=== PATIENT | male | born 1985 | race Hispanic/Latino ===

== ENCOUNTER 2017-05-14 12:30 | Emergency (ER) | payer SELFPAY ==
[~2017-05-14] VITALS: Ht 188 cm; Wt 77.1 kg
--- NOTE | 2017-05-14 13:22 | ED NECK/BACK PAIN COMPLAINT ---
History of Present Illness General Chief Complaint: Low Back Pain/Injury Stated Complaint: LOW BACK PAIN Source: patient, old records Exam Limitations: no limitations Vital Signs & Intake/Output Vital Signs & Intake/Output Vital Signs Date Time Temp Pulse Resp B/P B/P Pulse O2 O2 Flow FiO2 Mean Ox Delivery Rate 05/14 1437 98.8 71 20 112/62 98 Room Air 05/14 1359 Room Air 05/14 1246 98.6 86 20 104/69 97 Room Air Allergies Coded Allergies: No Known Allergies (05/14/17) Reconcile Medications Cyclobenzaprine HCl 5 MG TABLET 1 TAB PO TIDPRN PRN pain Naproxen 500 MG TABLET 1 TAB PO BID PRN pain Triage Note: PT C/O LOW BACK PAIN X 3 DAYS. DENIES ANY INJURY. STATES HE WOKE UP ON FRIDAY WITH THE PAIN. USED IBUPROFEN 100MG AND IT WORKED FOR ABOUT A HALF AN HOUR Triage Nurses Notes Reviewed? yes Onset: Abrupt Duration: day(s): (3), constant Timing: recent history Quality/Severity: moderate (aching) Location: lumbar spine, paraspinous muscles Radiation: none Context: denies Loss of Consciousness: no loss of consciousness Modifying Factors: movement, rest Associated Symptoms: denies HPI: 32-year-old male with no medical history presents to the ER for evaluation complaining of bilateral lower back pain for the past 3 days. He states he's had intermittent episodes of similar pain in the past however he is been able to tolerate by taking medication and rest. He denies any new injury or trauma. No history of back surgeries in the past. There is no radiation the pain, no numbness or tingling in his legs. No urinary or bowel incontinence O Dohle pain nausea or vomiting. He took ibuprofen 800 mg without improvement. (Yong Henry) Past History Travel History Traveled to [place] past 21 day No Medical History Any Pertinent Medical History? none Surgical History Surgical History: none Psychosocial History What is your primary language Icelandic Tobacco Use: Current Daily Use Daily Tobacco Use Amount/Type: => 5 Cigarettes daily ETOH Use: denies use Illicit Drug Use: denies illicit drug use Family History Hx Contributory? No (Yong Henry) Review of Systems Review of Systems Constitutional: Reports: see HPI. Comments Review of systems: See HPI, All other systems negative. Constitutional, no chills no fever, HEENT: no sore throat no congestion Cardiovascular: No chest pain , Skin: no rashes, no change in skin Respiratory: No dyspnea no cough no sputum GI: No nausea no vomiting, no diarrhea, no bloating/constipation : No dysuria No hematuria, no frequency Muscle skeletal: No joint pain, back pain, no neck pain, Neurologic: , no headache Heme/endocrine: No bruising Immunology: No lymphadenopathy (Yong Henry) Physical Exam Physical Exam General Appearance: well developed/nourished, alert, awake Neck: normal inspection, supple Comments: Well-developed well-nourished person in no acute distress HEENT: Normal EENT exam; PERRL, EOMI, HEAD is atraumatic. moist mucous membranes. Neck: Supple, normal range of motion Back: Bilateral paralumbar muscle tenderness palpation of midline tenderness,, no CVA tenderness. Full range of motion Cardiovascular: Regular rate and rhythms no murmurs Respiratory: No respiratory distress. Patient speaking in full complete sentences. Breath sounds clear to auscultation bilaterally: NO W/R/R Abdomen: Soft, nontender nondistended, no appreciable organomegaly. Normal bowel sounds. No rebound/guarding, Extremity: No edema, full range of motion of extremities, negative straight leg raise bilaterally, 5 out of 5 strength noted to bilateral upper and lower extremities Neuro: Alert oriented x3, motor sensory normal, There were no obvious focal neurologic abnormalities. Skin: No appreciable rash on exposed skin, skin is warm and dry. Psych: Mood and affect is normal, memory and judgment is normal. Core Measures CVA/TIA Diagnosis: No (Yong Henry) Progress Differential Diagnosis: cauda equina syn, herniated disc, myofascial strain, pyelo/UTI, T/L spine injury, ureterolithiasis Plan of Care: Orders Procedure Date/time Status XRY-LUMBOSACRAL SPINE AP & LAT 05/14 1325 Active X-rays ordered patient declining anything for pain when offered. Patient clinically looks well. Patient has no evidence of radiculopathy. No urinary bowel dysfunction. No numbness in the genital area. Strength intact. Gross sensation intact. Patient resting comfortably and in no apparent distress. Pain is worse with range of motion. Pain is reproducible IN back with no bruising or ecchymosis noted. . Patient is to follow-up with primary care doctor. May need MRI of the lower back at some point time. No concerns for cauda equina at this point time. I considered this diagnosis but patient does not have any symptoms consistent with cauda equina. Patient has no secondary causes of back pain. No cardiac, pulmonary, or abdominal complaints. No abdominal pain on exam. Cardiac pulmonary exam within normal limits. No rashes, afebrile, denies recent weight loss, dizziness, lightheadedness I discussed with the patient at length all of their results. I had an extensive conversation regarding need for close follow up with their primary care physician this week as well as return precautions. I answered all of their questions, they feel comfortable with the plan and follow-up care. I discussed with the patient/family the medications that they will receive. I gave them signs and symptoms that could indicate an adverse reaction. I have advised them to limit their activities until they can see how they respond to the medication. Diagnostic Imaging: Viewed by Me: Radiology Read. Discussed w/RAD: Radiology Read. Radiology Impression: PATIENT: MADELIN MARTINEZ PRESENT AGE: 32 PATIENT ACCOUNT NO: [id number] : 87 LOCATION: [facility] ORDERING PHYSICIAN: Yong WOOTEN SERVICE DATE: 05/14/17 EXAM TYPE: RAD - XRY- LUMBOSACRAL SPINE AP & LAT EXAMINATION: XR LUMBOSACRAL SPINE CLINICAL INFORMATION: Low back pain. COMPARISON: None TECHNIQUE: AP and lateral views of the lumbosacral spine were obtained. FINDINGS: The vertebral bodies and posterior elements are normal. The disc spaces are preserved and the vertebral alignment is normal. The paraspinal soft tissues are normal. IMPRESSION: Unremarkable examination. DICTATED BY: Mason Delgado MD DATE/TIME DICTATED:07/27 DISPATCHER MAINTENANCE SERVICE:ANKITA DATE/TIME TRANSCRIBED:05/14/171421 CONFIDENTIAL, DO NOT COPY WITHOUT APPROPRIATE AUTHORIZATION. <Electronically signed in Other Vendor System> SIGNED BY: Mason Delgado MD 05/14/171426 (Yong Henry) Departure Departure Time of Disposition: 1431 Disposition: HOME OR SELF CARE Condition: Stable Clinical Impression Primary Impression: Lumbar strain Referrals: Lucille Sharpe DO Patient Has No Primary Care Dr (PCP/Family) Additional Instructions: rest, interchange ice and heat. flexeril as directed. this is a muscle relaxer and may make you drowsy. naproxen for pain. follow up with pmd dr sharpe, return with any concerns Departure Forms: Customer Survey General Discharge Information Prescriptions: Current Visit Scripts Cyclobenzaprine HCl 1 TAB PO TIDPRN PRN pain #12 TAB Naproxen 1 TAB PO BID PRN pain #30 TAB (Yong Henry) PA/MVA REACTOR OPERATOR Co-Sign Statement Statement: ED Attending supervision documentation- [] I saw and evaluated the patient. I have also reviewed all the pertinent lab results and diagnostic results. I agree with the findings and the plan of care as documented in the PA's/MVA REACTOR OPERATOR's documentation. [X] I have reviewed the ED Record and agree with the PA's/MVA REACTOR OPERATOR's documentation. [] Additions or exceptions (if any) to the PAs/MVA REACTOR OPERATOR's note and plan are summarized below: [] (Hanh LE,Sean Hahn)
--- NOTE | 2017-05-14 14:27 | RADIOLOGY REPORT ---
EXAMINATION: XR LUMBOSACRAL SPINE CLINICAL INFORMATION: Low back pain. COMPARISON: None TECHNIQUE: AP and lateral views of the lumbosacral spine were obtained. FINDINGS: The vertebral bodies and posterior elements are normal. The disc spaces are preserved and the vertebral alignment is normal. The paraspinal soft tissues are normal. IMPRESSION: Unremarkable examination.
[2017-05-14] MEDS ORDERED: CYCLOBENZAPRINE5 M2 PO (14:32)
[2017-05-14] MEDS ORDERED: NAPROXEN500 M2 PO (14:32)
[2017-05-14 14:37] VITALS: BP 112/62
== END 2017-05-14 14:55 ==
LOC: ERH 12:30
DX: S39.012A Strain of muscle, fascia and tendon of lower back, initial encounter (principal); X58.XXXA Exposure to other specified factors, initial encounter; Y92.9 Unspecified place or not applicable; Y93.9 Activity, unspecified
CPT/HCPCS: 72100